=== PATIENT | female | born 1950 | race Caucasian/White ===

== ENCOUNTER 2017-10-16 13:12 | Day surgery (SDC) | payer MEDICARE, OTHER ==
[~2017-10-16] VITALS: Ht 172.7 cm; Wt 59.9 kg
[~2017-10-16 13:12] MED LIST: ALBU90OI INH; ASPI81CH PO; FISH OIL 1,001000 MG PO
== END 2017-10-16 16:02 | disposition home or self-care (01) ==
LOC: ORSCSDS 13:12
PROVIDERS: Ophthalmology
PROC: 080P0ZZ Alteration of Left Upper Eyelid, Open Approach (ICD-10-PCS; principal; 2017-10-16 14:45)
PROC: 080N0ZZ Alteration of Right Upper Eyelid, Open Approach (ICD-10-PCS; principal; 2017-10-16 14:45)
DX: H02.834 Dermatochalasis of left upper eyelid (principal); H02.831 Dermatochalasis of right upper eyelid; J44.9 Chronic obstructive pulmonary disease, unspecified; E78.5 Hyperlipidemia, unspecified; R03.0 Elevated blood-pressure reading, without diagnosis of hypertension; F17.210 Nicotine dependence, cigarettes, uncomplicated
CPT/HCPCS: J0171; J2250; J7040

== ENCOUNTER 2019-07-15 08:41 | Emergency (ER) | payer MEDICARE, OTHER ==
[~2019-07-15] VITALS: Ht 172.7 cm; Wt 61.2 kg
[2019-07-15] MEDS ORDERED: PRED10 PO (09:18)
[2019-07-15] MEDS ORDERED: Zovirax800 MG PO (09:18)
== END 2019-07-15 09:25 | disposition home or self-care (01) ==
LOC: ER 08:41
DX: B02.9 Zoster without complications (principal); Z88.5 Allergy status to narcotic agent; Z79.899 Other long term (current) drug therapy; F17.200 Nicotine dependence, unspecified, uncomplicated
CPT/HCPCS: 99282

== ENCOUNTER → 2020-03-03 | Outpatient (CLI) | payer MEDICARE ==
[~2020-03-03] MED LIST changes: +PRED10 PO; +Zovirax800 MG PO
== END | disposition home or self-care (01) ==
LOC: LAB SHORT 18:01 → LAB 18:01 → EDSTATUS 03-01 12:25 → LAB FUT 03-01 12:25
DX: Z11.59 Encounter for screening for other viral diseases (principal)
CPT/HCPCS: 86803

== ENCOUNTER 2021-04-28 15:03 | Inpatient (IN) | payer OTHER, MEDICARE ==
[~2021-04-28] VITALS: Ht 172.7 cm; Wt 56.2 kg
[2021-04-28 18:07] LABS: BASOPHILS ABSOLUTE AUTO 0.05 K/mm3 (0.00-0.23); BASOPHILS PERCENT AUTO 0 % (0-2); EOSINOPHILS ABSOLUTE AUTO 0.12 K/mm3 (0.00-0.68); EOSINOPHILS PERCENT AUTO 1 % (0-6); Hematocrit 40.3 % (33.0-51.0); Hemoglobin 13.8 g/dL (11.5-16.0); IMMATURE GRAN ABSOLUTE AUTO 0.06 K/mm3 (0.00-0.10); IMMATURE GRAN PERCENT AUTO 0 % (0-1); LYMPHOCYTES ABSOLUTE AUTO 1.16 K/mm3 (0.84-5.20); LYMPHOCYTES PERCENT AUTO 8 % (21-46); MONOCYTES ABSOLUTE AUTO 1.12 K/mm3 (0.16-1.47); MONOCYTES PERCENT AUTO 8 % (4-13); Mean Corpuscular HGB Conc 34.2 g/dL (31.5-36.5); Mean Corpuscular Volume 96 fL (80-100); Mean Platelet Volume 11.3 fL (9.1-12.4); NEUTROPHILS ABSOLUTE AUTO 11.25 K/mm3 (1.96-9.15); NEUTROPHILS PERCENT AUTO 82 % (41-73); Platelet Count 236 K/mm3 (150-400); RDW Coefficient Variation 13.2 % (11.7-14.2); RDW Standard Deviation 47.1 fL (35.1-46.3); Red Blood Cell Count 4.18 M/mm3 (3.80-5.20); White Blood Cell Count 13.76 K/mm3 (4.00-11.30)
[2021-04-28 18:30] LABS: CO2, Blood 26 mmol/L (21-32); Chloride, Blood 107 mmol/L (98-108); Potassium, Blood 3.8 mmol/L (3.5-5.5); Sodium, Blood 139 mmol/L (136-145)
[2021-04-28 18:31] LABS: Alanine Aminotransfer (ALT/SGP 33 U/L (12-78); Albumin, Blood 3.5 g/dL (3.4-5.0); Albumin/Globulin Ratio 0.9 (0.8-1.8); Alk Phos 105 U/L (50-136); Anion Gap 6 mmol/L (6-16); Aspartate Aminotrans (AST/SGOT 22 U/L (12-37); Bilirubin, Total 0.5 mg/dL (0.1-1.0); Blood Urea Nitrogen 24 mg/dL (8-24); Bun/Creatinine Ratio 28.5 (12.0-20.0); Calcium, Blood 9.1 mg/dL (8.5-10.1); Creatinine, Blood 0.84 mg/dL (0.40-1.00); Globulin, Blood 3.8 g/dL (2.2-4.0); Glomerular Filtration Rate >60 (60-); Glucose, Blood 119 mg/dL (70-99); Total Protein, Blood 7.3 g/dL (6.4-8.2)
[2021-04-28 18:35] LABS: SARS-Cov-2 (COVID-19) PCR, MMC NEGATIVE (NEGATIVE)
[2021-04-29] MEDS ORDERED: NAPR500 PO (00:08)
--- NOTE | 2021-04-29 04:23 | NUR ---
SHIFT SUMMARY NEW ADMIT THIS SHIFT. AAOX4. NPO SINCE MIDNIGHT. PPP, DENIES N/T ALL EXTREMITIES, MOVES ALL FINGERS/TOES WELL. PT REPOSITIONS SELF WELL IN BED WITH MINIMAL ASSIST. ORIENTED TO ROOM + CALL LIGHT USE. SURGICAL PACKET ON FRONT OF CHART, COVID SWAB NEGATIVE, 20g IV TO UPPER RIGHT FA FLUSHES/DRAWS EASILY. PT CURRENTLY RESTING IN BED WITH CALL LIGHT IN REACH.
--- NOTE | 2021-04-30 03:55 | NUR ---
SHIFT SUMMARY POD#1 LEFT HIP SURGERY AAOX4. DISCOMFORT CONTROLLED WITH 5MG ROXICODONE X1 THIS SHIFT. MILD NAUSEA UPON AMBULATING DECREASED WITH ZOFRAN X1, NO EMESIS. DRESSING TO LEFT HIP C/D/I. PPP, DENIES N/T ALL EXTREMITIES, MOVES TOES/FINGERS WELL. UP TO RESTROOM SBA WITH FWW + GAIT BELT. CONTINUE TO ENCOURAGE PO INTAKE TOLERATED + AMBULATION TODAY. CURRENTLY PT IS RESTING IN BED WITH CALL LIGHT IN REACH.
[2021-04-30] MEDS ORDERED: ASPI81CH PO (15:17)
--- NOTE | 2021-04-30 16:41 | NUR ---
DISCHARGE SUMMARY PT A&OX4, VSS, VOIDING WELL/BM+, [place] PO, DENIES N&V, DENIES PAIN MEDICATION NEED FOR TOLERABLE PAIN. DISCHARGE INSTRUCTIONS PROVIDED TO PT AND SPOUSE. BOTH REP UNDERSTANDING THOSE INSTRUCTIONS INCLUDING ASA BID, DRESSING CHANGES, SHORT FREQUENT AMBULATION W/FWW, FU WITH PHYSICAL THERAPY AND SURGEON. LEFT FLOOR VIA WC WITH RN, TO GO HOME WITH , WITH ALL PERSONAL POSSESSIONS INCLUDING DC INS, AQUACEL DRESSINGS, AND ASA SCRIPT. IV DC'D.
--- NOTE | 2021-05-02 14:16 | NUR ---
05/02/21 1416 Jesusita Novak VERIFICATIONS: EDIT CHART.
== END 2021-04-30 15:45 | disposition home or self-care (01) | DRG 482 ==
LOC: ER 15:03 → SURS 21:14 → ER 04-29 → SURS 04-29 00:20
PROVIDERS: Orthopaedic Surgery; Physician Assistant; ADMIT Hospitalist
PROC: 0QS734Z Reposition Left Upper Femur with Internal Fixation Device, Percutaneous Approach (ICD-10-PCS; principal; 2021-04-29 13:00)
DX: S72.012A Unspecified intracapsular fracture of left femur, initial encounter for closed fracture (principal); F17.210 Nicotine dependence, cigarettes, uncomplicated; Z20.822 Contact with and (suspected) exposure to COVID-19; Z98.890 Other specified postprocedural states; Z98.42 Cataract extraction status, left eye; Z98.41 Cataract extraction status, right eye; Z90.710 Acquired absence of both cervix and uterus; Z90.722 Acquired absence of ovaries, bilateral; Z88.5 Allergy status to narcotic agent; Z79.899 Other long term (current) drug therapy; W10.9XXA Fall (on) (from) unspecified stairs and steps, initial encounter
CPT/HCPCS: 36415; 73502; 80053; 85025; 93005; 93010; 96374; 96375; 97162; 99285-25; A9270; C1713; C1769; J0690; J2370; J2405; J2704; J3010; J7050; J7120; U0004

== ENCOUNTER → 2021-06-30 | Outpatient (CLI) | payer OTHER ==
[~2021-06-30] MED LIST changes: +NAPR500 PO
[2021-06-30 15:36] LABS: D-Dimer, Quantitative 1.06 mg/L FEU (0.00-0.52); International Normalized Ratio 1.05
[2021-06-30 16:28] LABS: Percent Saturation 23.6 % (15.0-50.0)
== END | disposition home or self-care (01) ==
LOC: LAB SHORT 11:32
PROVIDERS: Nurse Practitioner Family
DX: S80.12XA Contusion of left lower leg, initial encounter (principal)
CPT/HCPCS: 82728; 83540; 83550; 85379; 85610; 85651; 85730

== ENCOUNTER 2021-07-07 06:48 | Day surgery (SDC) | payer OTHER ==
[~2021-07-07] VITALS: Ht 172.7 cm; Wt 51.9 kg
[2021-07-07] MEDS ORDERED: MULVITA PO (07:44)
[2021-07-07] MEDS ORDERED: NAPROXEN250 M1 PO (07:45)
== END 2021-07-07 10:15 | disposition home or self-care (01) ==
LOC: ORSCSDS 06:48
PROVIDERS: Orthopaedic Surgery
PROC: 0SPB04Z Removal of Internal Fixation Device from Left Hip Joint, Open Approach (ICD-10-PCS; principal; 2021-07-07 08:15)
PROC: 0SSB34Z Reposition Left Hip Joint with Internal Fixation Device, Percutaneous Approach (ICD-10-PCS; principal; 2021-07-07 08:15)
DX: T84.84XA Pain due to internal orthopedic prosthetic devices, implants and grafts, initial encounter (principal); S72.002D Fracture of unspecified part of neck of left femur, subsequent encounter for closed fracture with routine healing; E78.5 Hyperlipidemia, unspecified; J43.9 Emphysema, unspecified; F17.210 Nicotine dependence, cigarettes, uncomplicated; Z79.82 Long term (current) use of aspirin
CPT/HCPCS: C1713; J0690; J2370; J2405; J2704; J3010; J7120

== ENCOUNTER 2024-10-14 06:02 | Day surgery (SDC) | payer OTHER ==
[~2024-10-14] VITALS: Ht 167 cm; Wt 48.0 kg
[2024-10-14] VITALS (19 sets, daily range): BP systolic 100–136; BP diastolic 62–97
[~2024-10-14 06:02] MED LIST changes: +ALEN70 PO; +EZET10 PO; +MULVITA PO; +Naproxen Sodiu220 MG PO
[2024-10-14] MEDS ORDERED: CeFAZolin Sodium 2,000 MG in NS 100 ML IV SCH ×2 (06:15→16:00)
[2024-10-14] MEDS ORDERED: Chlorhexidine Mouth Care 15 ML UDC MT SCH (06:15)
[2024-10-14] MEDS ORDERED: Lactated Ringer's 1,000 ML IV SCH ×2 (06:15→07:10)
[2024-10-14] MEDS ORDERED: Vancomycin HCL 1,000 MG in NS 250 ML IV SCH (06:15)
[2024-10-14] MEDS ORDERED: Acetaminophen 500 MG Tab PO SCH ×2 (06:15→08:00)
[2024-10-14] MEDS ORDERED: Tranexamic Acid 1,000 MG in NS 100 ML IV SCH (06:15)
[2024-10-14] MEDS ORDERED: Ropivacaine 0.5% HCl/Pf 123.125 MG,EPINEPHrine HCL 0.25 MG,Ketorolac Tromethamine 15 MG... INFIL SCH (06:15)
[2024-10-14] MEDS ORDERED: OxyCODONE HCL 10 MG TABCR PO SCH (06:15)
[2024-10-14] MEDS ORDERED: Midazolam HCl 1MG / ML 2ML Vial ONE (06:59)
[2024-10-14] MEDS ORDERED: OxyCODONE HCL 5 MG TAB PO PRN ×2 (07:05→07:10)
[2024-10-14] MEDS ORDERED: Bisacodyl 10 MG Supp PR PRN (07:05)
[2024-10-14] MEDS ORDERED: Promethazine HCl 25 MG Tab PO PRN (07:05)
[2024-10-14] MEDS ORDERED: Prochlorperazine Edisylate 10 mg Vial IV PRN (07:05)
[2024-10-14] MEDS ORDERED: Ondansetron HCl 2 MG / ML 2ML Vial IV PRN (07:10)
[2024-10-14] MEDS ORDERED: Metoclopramide HCl 5MG / ML 2ML Vial IV PRN (07:10)
[2024-10-14] MEDS ORDERED: Magnesium Hydroxide Conc 10 ML UDC PO PRN (07:10)
[2024-10-14] MEDS ORDERED: HYDROmorphone HCl/Pf 1MG SYR IV PRN (07:15)
[2024-10-14] MEDS ORDERED: DiphenhydrAMINE HCL 25 MG Cap PO PRN (07:15)
[2024-10-14] MEDS ORDERED: FLU VACC TS2024-25(6MOS UP)/PF 45 MCG/0.5 ML SYRINGE IM PRN (07:15)
[2024-10-14] MEDS ORDERED: propofoL 60 ML IV ONE (07:16)
[2024-10-14] MEDS ORDERED: Vancomycin HCl 1000 MG ADDvantage ONE (07:20)
--- NOTE | 2024-10-14 07:23 | NUR ---
History, Chart, Medications and Allergies reviewed before start of procedure. Pre-Op teaching done. Pt verbalizes understanding. Patient confirms NPO status and agrees with scheduled surgery. Patient reports completing Chlorhexadine shower X2 prior to admission to hospital. Surgical site prepped with 2% Chlorhexidine cloth wipe.
--- NOTE | 2024-10-14 08:40 | NUR ---
10/14/24 0840 Charlette Peña PRIOR TO ARRIVING IN THE OR PATIENT RECEIVED VANCO IGM IV IN THE PREOP SETTING.
[2024-10-14] MEDS ORDERED: Multivitamins 1 Tab PO SCH ×2 (09:00)
[2024-10-14] MEDS ORDERED: Ezetimibe 10 MG Tab PO SCH ×2 (09:00)
[2024-10-14] MEDS ORDERED: Docusate Sodium 100 MG Cap PO SCH (09:00)
[2024-10-14] MEDS ORDERED: FentaNYL Citrate 50 MCG/ML 2 ML Injection ONE (10:09)
--- NOTE | 2024-10-14 11:01 | NUR ---
ARRIVAL TO UNIT AFTER RECEIVING REPORT FROM STAFF PHYSICAL THERAPY ASSISTANT, PATIENT TRANSFERRED TO UNIT VIA BED AT APPROX 1040. PATIENT LETHARGIC, EASILY AROUSABLE WITH VERBAL STIMULI. ALERT AND ORIENTED X4. COMMUNICATING NEEDS EFFECTIVELY. S/P R JIN - X3 GAUZE AND FOAM TAPE DXs, C/D/I. RECEIVED SPINAL - REPORTS FULL SENSATION, ABLE TO WIGGLE TOES. DENIES PAIN AT THIS TIME. POLAR PACK IN PLACE. DENIES NAUSEA/VOMITING - SMALL SNACKS AND WATER WITHIN REACH. FAMILY AT BEDSIDE. CALL LIGHT IN REACH.
[2024-10-14] MEDS ORDERED: Ketorolac Tromethamine 15mg Vial IV SCH (12:00)
--- NOTE | 2024-10-14 16:52 | NUR ---
SHIFT SUMMARY NO ACUTE CHANGES SINCE ARRIVAL TO UNIT. PATIENT LETHARGIC POST OP - SLEPT MAJORITY OF THE DAY. EASILY AROUSABLE WITH VERBAL STIMULI. ALERT AND ORIENTED X4. COMMUNICATING NEEDS EFFECTIVELY. S/P R JIN - REPORTS FULL SENSATION POST SPINAL. PAIN TOLERABLE WITH SCHEDULED MEDICATION. X2 INCONTINENT VOIDS. CHANGING ATTENDS PRN TO KEEP C/D/I. UNABLE TO TOLERATE MUCH PO INTAKE - X2 EPISODES OF NAUSEA/VOMITING. MANAGING PER EMAR. LR INFUSING PER EMAR. UNABLE TO WORK WITH PHYSICAL AND OCCUPATIONAL THERAPY. GAUZE AND FOAM TAPE DXs C/D/I. CALL LIGHT IN REACH. WILL CONTINUE TO MONITOR AND REPORT TO ONCOMING RN.
[2024-10-14] MEDS ORDERED: Vancomycin HCL 1,000 MG in NS 250 ML IV ONE (19:00)
[2024-10-15 00:16] VITALS: BP 117/68
[2024-10-15 04:40] VITALS: BP 120/72
[2024-10-15 04:56] LABS: BASOPHILS ABSOLUTE AUTO 0.02 K/mm3 (0.00-0.23); BASOPHILS PERCENT AUTO 0 % (0-2); EOSINOPHILS PERCENT AUTO 0 % (0-6); Hematocrit 32.9 % (33.0-51.0); Hemoglobin 11.3 g/dL (11.5-16.0); IMMATURE GRAN ABSOLUTE AUTO 0.04 K/mm3 (0.00-0.10); IMMATURE GRAN PERCENT AUTO 0 % (0-1); LYMPHOCYTES ABSOLUTE AUTO 0.94 K/mm3 (0.84-5.20); LYMPHOCYTES PERCENT AUTO 9 % (21-46); MONOCYTES ABSOLUTE AUTO 0.82 K/mm3 (0.16-1.47); MONOCYTES PERCENT AUTO 7 % (4-13); Mean Corpuscular HGB 32.8 pg (26.0-34.0); Mean Corpuscular HGB Conc 34.3 g/dL (31.5-36.5); Mean Corpuscular Volume 95 fL (80-100); Mean Platelet Volume 10.8 fL (9.1-12.4); NEUTROPHILS ABSOLUTE AUTO 9.26 K/mm3 (1.96-9.15); NEUTROPHILS PERCENT AUTO 84 % (41-73); Platelet Count 237 K/mm3 (150-400); RDW Coefficient Variation 13.1 % (11.7-14.2); RDW Standard Deviation 46.3 fL (35.1-46.3); Red Blood Cell Count 3.45 M/mm3 (3.80-5.20); White Blood Cell Count 11.08 K/mm3 (4.00-11.30)
[2024-10-15 05:38] LABS: Bun/Creatinine Ratio 19.4 (12.0-20.0); Calcium, Blood 8.1 mg/dL (8.5-10.1); Creatinine, Blood 0.57 mg/dL (0.40-1.00); Magnesium, Blood 1.9 mg/dL (1.6-2.4); Potassium, Blood 3.7 mmol/L (3.5-5.5)
--- NOTE | 2024-10-15 06:04 | NUR ---
SHIFT SUMMARY NOC. PT POD 1 FOR RIGHT TOTAL HIP. FOAM TAPE WITH GAUZE DRESSINGS C/D/I. PT A/O X4. PT VOIDING URINE AND TOLERATING SIPS OF CLEARS. PT HAS BEEN NAUSEOUS THIS SHIFT AND REPORTED IMPROVEMENT WITH PRN MEDS FOR PAIN AND NAUSEA. PT CALLS APPROPRIATELY AND MAKES NEEDS KNOWN.
[2024-10-15] MEDS ORDERED: ASPI81CH PO (07:33)
[2024-10-15 07:34] VITALS: BP 109/64
[2024-10-15] MEDS ORDERED: OXAYDO5 M1 PO (07:34)
[2024-10-15] MEDS ORDERED: PROM25 PO (07:34)
[2024-10-15] MEDS ORDERED: SULTRIDS PO (07:35)
[2024-10-15] MEDS ORDERED: Multivitamins 1 Tab PO SCH (09:00)
[2024-10-15] MEDS ORDERED: Ezetimibe 10 MG Tab PO SCH (09:00)
[2024-10-15] MEDS ORDERED: Trimethoprim/Sulfamethoxazole DS Tab PO SCH (09:00)
[2024-10-15] MEDS ORDERED: Aspirin 81 MG Chew PO SCH (09:00)
--- NOTE | 2024-10-15 10:58 | NUR ---
DISCHARGE NOTE THIS RN ASSUMED CARE AT APPROX 0715. PATIENT UP IN CHAIR, ALERT AND ORIENTED X4. COMMUNICATING NEEDS EFFECTIVELY. VSS. REPORTING MILD NAUSEA, NO VOMITING - MEDICATED PER EMAR WITH IV ZOFRAN WITH REPORTED RELIEF. TOLERATED PO INTAKE THIS MORNING. POD 1 R JIN - X3 AQUACEL DXs C/D/I. PAIN TOLERABLE WITH PRESCRIBED THERAPY. WORKED WITH PHYSICAL AND OCCUPATIONAL THERAPY THIS MORNING - CLEARED FOR DC HOME. IV REMOVED. DC EDUCATION PROVIDED TO BOTH PATIENT AND HER - BOTH STATE UNDERSTANDING. PERSONAL BELONGINGS WITH PATIENT - INCLUDING POLAR PACK AND PERSONAL FWW. PATIENT TRANSFERRED OFF UNIT VIA WHEELCHAIR AT APPROX 1050.
[2024-10-18] MEDS ORDERED: Alendronate Sodium 70 MG Tablet PO SCH ×2 (07:15→07:30)
== END 2024-10-15 10:50 | disposition home or self-care (01) ==
LOC: ORSCMMR 06:02 → ORD 07:30 → ORSCMMR 07:30 → SURS 10:40 → ORSCMMR 10-15 10:50
PROVIDERS: Orthopaedic Surgery
PROC: 0SR90JA Replacement of Right Hip Joint with Synthetic Substitute, Uncemented, Open Approach (ICD-10-PCS; principal; 2024-10-14 07:30)
DX: M16.11 Unilateral primary osteoarthritis, right hip (principal); G47.33 Obstructive sleep apnea (adult) (pediatric); J44.9 Chronic obstructive pulmonary disease, unspecified; Z87.891 Personal history of nicotine dependence; E78.00 Pure hypercholesterolemia, unspecified; Z79.899 Other long term (current) drug therapy
CPT/HCPCS: 36415; 72170; 80048; 83735; 85025; 97110; 97116; 97162; 97165; 97530; 97535; A9270; C1713; C1776; J0171; J0690; J0735; J1885; J2250; J2405; J2704; J2765; J2795; J3010; J3370; J7050; J7120